=== PATIENT | female | born 1960 | race Caucasian/White ===

== ENCOUNTER → 2019-05-09 | Outpatient (CLI) | payer BC ==
--- NOTE | 2019-05-09 11:32 | 2DMMODE ---
[place] [address] 2 D/M-MODE ECHOCARDIOGRAM Name: ELIESER TYLER V Room: [facility]#: [id number] Admission: 05/09/19 Attend Phys: Cristina Abdullahi, Discharge: Date of : 60 Date of Service: 05/09/19 1132 Report #: [id number] THIS REPORT FOR: //name// APPROVED REPORT Study performed: 05/09/2019 10:01:02 EXAM: Comprehensive 2D, Doppler, and color-flow Echocardiogram Patient Location: Out-Patient BSA: 1.42 HR: 66 bpm BP: 130/60 mmHg Other Information Study Quality: Good Indications Lung Cancer 2D Dimensions IVSd: 8.93 (7-11mm) LVOT Diam: 18.45 (18-24mm) LVDd: 38.43 mm PWd: 8.31 (7-11mm) Ascending Ao: 29.05 (22-36mm) LVDs: 27.20 (25-40mm) Aortic Root: 19.47 mm Volumes Left Atrial Volume (Systole) LA ESV Index: 17.70 mL/m2 Aortic Valve AoV Peak Rajeev.: 1.43 m/s AO Peak Gr.: 8.18 mmHg LVOT Max P.82 mmHg AO Mean Gr.: 3.67 mmHg LVOT Mean P.73 mmHg LVOT Max V: 1.31 m/s AO V2 VTI: 25.67 cm LVOT Mean V: 0.74 m/s MELISSA (VTI): 2.83 cm2 LVOT V1 VTI: 27.14 cm Mitral Valve E/A Ratio: 1.25 MV Decel. Time: 188.55 ms MV E Max Rajeev.: 0.88 m/s MV PHT: 54.68 ms MVA (PHT): 4.02 cm2 [place] [address] 2 D/M-MODE ECHOCARDIOGRAM Name: NAYELIELIESER V Room: [facility]#: [id number] Admission: 05/09/19 Attend Phys: Cristina Abdullahi, Discharge: Date of : 60 Date of Service: 05/09/19 1132 Report #: [id number] TDI E/Lateral E': 5.50 E/Medial E': 8.80 Medial E' Rajeev.: 0.10 m/s Lateral E' Rajeev.: 0.16 m/s Pulmonary Valve PV Peak Rajeev.: 0.77 m/s PV Peak Gr.: 2.35 mmHg Tricuspid Valve RAP Estimate: 5.00 mmHg TR Peak Gr.: 18.51 mmHg RVSP: 23.51 mmHg PA Pressure: 23.51 mmHg Left Ventricle The left ventricle is normal size. There is normal LV segmental wall motion. There is normal left ventricular wall thickness. Left ventricular systolic function is normal. The left ventricular ejection fraction is within the normal range. LVEF is 60%. The left ventricular diastolic function is normal. Right Ventricle The right ventricle is normal size. The right ventricular systolic function is normal. Atria The left atrium size is normal. The right atrium size is normal. Aortic Valve Mild aortic valve sclerosis. No aortic regurgitation is present. There is no aortic valvular stenosis. Mitral Valve The mitral valve is normal in structure. There is no mitral valve regurgitation noted. No evidence of mitral valve stenosis. Tricuspid Valve The tricuspid valve is normal in structure. Mild tricuspid regurgitation. Pulmonic Valve The pulmonary valve is normal in structure. There is no pulmonic valvular regurgitation[place] [address] 2 D/M-MODE ECHOCARDIOGRAM Name: ELIESER TYLER V Room: [facility]#: [id number] Admission: 05/09/19 Attend Phys: Cristina Abdullahi, Discharge: Date of : 60 Date of Service: 05/09/19 1132 Report #: [id number] The aortic root is normal in size. IVC is normal in size and collapses >50% with inspiration. Pericardium There is no pericardial effusion. <Conclusion> The left ventricle is normal size. There is normal left ventricular wall thickness. Left ventricular systolic function is normal. The left ventricular ejection fraction is within the normal range. LVEF is 60%. The left ventricular diastolic function is normal. The left atrium size is normal. Mild aortic valve sclerosis. No aortic regurgitation is present. There is no aortic valvular stenosis. The mitral valve is normal in structure. The tricuspid valve is normal in structure. Mild tricuspid regurgitation. IVC is normal in size and collapses >50% with inspiration. There is no pericardial effusion. There is normal LV segmental wall motion. <ELECTRONICALLY SIGNED> By: Sharath Sheikh MD, FACC 05/09/19 1132 1132 1132 Sharath Sheikh MD, FACC /INF
== END ==
LOC: M.CRD 09:42
DX: I08.2 Rheumatic disorders of both aortic and tricuspid valves (principal); C34.91 Malignant neoplasm of unspecified part of right bronchus or lung

== ENCOUNTER → 2019-12-21 | Outpatient (CLI) | payer BC ==
--- NOTE | 2019-12-21 16:30 | 2DMMODE ---
[place] [address] 2 D/M-MODE ECHOCARDIOGRAM Name: TYLERELIESER V Room: [facility]#: [id number] Admission: 12/21/19 Attend Phys: Cristina Abdullahi, Discharge: Date of : 60 Date of Service: 12/21/19 1629 Report #: [id number] THIS REPORT FOR: cc: JEREMÍAS CRUZ MD Physician not on staff Suhail Gonzalez MD [facility] ~ APPROVED REPORT Study performed: 12/21/2019 10:54:52 EXAM: Comprehensive 2D, Doppler, and color-flow Echocardiogram Patient Location: Out-Patient BSA: 1.38 HR: 75 bpm BP: 120/70 mmHg Other Information Study Quality: Good Indications Lung Cancer 2D Dimensions IVSd: 9.08 (7-11mm) LVOT Diam: 20.69 (18-24mm) LVDd: 38.31 mm PWd: 8.56 (7-11mm) Ascending Ao: 27.61 (22-36mm) LVDs: 20.80 (25-40mm) Aortic Root: 24.88 mm Volumes Left Atrial Volume (Systole) LA ESV Index: 19.60 mL/m2 Aortic Valve AoV Peak Rajeev.: 1.45 m/s AO Peak Gr.: 8.46 mmHg LVOT Max P.42 mmHg AO Mean Gr.: 4.34 mmHg LVOT Mean P.29 mmHg LVOT Max V: 1.16 m/s AO V2 VTI: 28.37 cm LVOT Mean V: 0.68 m/s MELISSA (VTI): 2.83 cm2 LVOT V1 VTI: 23.91 cm Mitral Valve E/A Ratio: 1.32 [place] [address] 2 D/M-MODE ECHOCARDIOGRAM Name: ELIESER TYLER V Room: [facility]#: [id number] Admission: 12/21/19 Attend Phys: Cristina Abdullahi, Discharge: Date of : 60 Date of Service: 12/21/19 1629 Report #: [id number] MV Decel. Time: 174.04 ms MV E Max Rajeev.: 0.91 m/s MV PHT: 50.47 ms MVA (PHT): 4.36 cm2 TDI E/Lateral E': 4.55 E/Medial E': 6.07 Medial E' Rajeev.: 0.15 m/s Lateral E' Rajeev.: 0.20 m/s Pulmonary Valve PV Peak Rajeev.: 0.98 m/s PV Peak Gr.: 3.87 mmHg Left Ventricle The left ventricle is normal size. There is normal LV segmental wall motion. There is normal left ventricular wall thickness. Left ventricular systolic function is normal. The left ventricular ejection fraction is within the normal range. LVEF is 55-60%. The left ventricular diastolic function is normal. Right Ventricle The right ventricle is normal size. The right ventricular systolic function is normal. Atria The left atrium size is normal. The right atrium size is normal. Aortic Valve Aortic valve is not well visualized. No aortic regurgitation is present. There is no aortic valvular stenosis. Mitral Valve The mitral valve is normal in structure. There is trace mitral valve regurgitation noted. No evidence of mitral valve stenosis. Tricuspid Valve The tricuspid valve is normal in structure. There is no tricuspid valve regurgitation noted. Pulmonic Valve Pulmonic valve is not well visualized. There is no pulmonic valvular regurgitation. Great Vessels The aortic root is normal in size. [place] [address] 2 D/M-MODE ECHOCARDIOGRAM Name: ELIESER TYLER V Room: [facility]#: [id number] Admission: 12/21/19 Attend Phys: Cristina Abdullahi, Discharge: Date of : 60 Date of Service: 12/21/19 1629 Report #: [id number] visualized. Pericardium There is no pericardial effusion. <Conclusion> Left ventricular systolic function is normal. The left ventricular ejection fraction is within the normal range. <ELECTRONICALLY SIGNED> By: Suhail Gonzalez MD, [facility] 12/21/19 1629 1629 28 Suhail Gonzalez MD, [facility] /INF
--- NOTE | 2019-12-21 16:46 | EKG ---
[place] [address] ELECTROCARDIOGRAM REPORT Name: ELIESER TYLER Alvin Room: [facility]#: [id number] Admission: 12/21/19 Attend Phys: Cristina Abdullahi, Discharge: Date of : 60 Date of Service: 12/21/19 1109 Report #: [id number] THIS REPORT FOR: //name// [facility] Test Date: 2019-12-21 Test Time: 11:09:04 Pat Name: ELIESER TYLER Department: Room: Gender: F Hotel [employer]: : 1960 Requested By: Cristina Abdullahi Order Number: [id number] Louise MD: Suhail Gonzalez Measurements Intervals [place] Rate: 70 P: 69 IA: 183 QRS: 36 QRSD: 91 T: 55 QT: 408 QTc: 441 Interpretive Statements Sinus rhythm Borderline low voltage, extremity leads Baseline wander in lead(s) II,III,aVF No previous ECG available for comparison Electronically Signed On 12-21-2019 16:45:54 CDT by Suhail Gonzalez [email or web address] <ELECTRONICALLY SIGNED> By: Suhail Gonzalez MD, [facility] 12/21/19 1645 1109 1109 Suhail Gonzalez MD, [facility] /EPI
== END ==
LOC: M.CRD 12-19 08:00
PROVIDERS: ATTEND Internal Medicine Hematology & Oncology
DX: C34.91 Malignant neoplasm of unspecified part of right bronchus or lung (principal); Z51.81 Encounter for therapeutic drug level monitoring